=== PATIENT | female | born 1960 | race Caucasian/White ===

== ENCOUNTER 2024-04-27 07:28 | Day surgery (SDC) | payer OTHER ==
[2024-04-27] MEDS ORDERED: Propofol 200 MG/20 ML SDV ONE (07:57)
[2024-04-27] MEDS ORDERED: fentaNYL 50 MCG/ML SDV ONE (07:57)
[2024-04-27] MEDS ORDERED: Midazolam 1 MG/ML 2 ML SDV ONE (07:57)
[2024-04-27] MEDS: Lactated Ringers 1,000 ML IV SCH (08:28)
== END 2024-04-27 10:55 | disposition home or self-care (01) ==
LOC: JP.SDS 07:28
PROVIDERS: ATTEND Family Medicine
DX: Z12.11 Encounter for screening for malignant neoplasm of colon (principal); F32.A Depression, unspecified; Z86.010 Personal history of colon polyps; Z88.0 Allergy status to penicillin; Z88.2 Allergy status to sulfonamides
CPT/HCPCS: 45378; J2250; J2704; J3010; J7120; 00812-QZ